=== PATIENT | male | born 1945 | race Caucasian/White ===

== ENCOUNTER → 2024-07-08 10:58 | Outpatient (REF) | payer MEDICARE, OTHER, SELFPAY | LOC: HWRAD 10:58 | PROVIDERS: ATTENDING PHYSICIAN Internal Medicine Rheumatology; FAMILY PHYSICIAN Nurse Practitioner Family | DX: M25.552 Pain in left hip (principal) | CPT/HCPCS: 73502 ==

== ENCOUNTER → 2024-10-09 13:43 | Outpatient (REF) | payer MEDICARE, OTHER, SELFPAY | LOC: HWRAD 13:43 | PROVIDERS: ATTENDING PHYSICIAN Nurse Practitioner Family | DX: I10 Essential (primary) hypertension (principal); E78.5 Hyperlipidemia, unspecified; M35.3 Polymyalgia rheumatica; I80.02 Phlebitis and thrombophlebitis of superficial vessels of left lower extremity; I26.99 Other pulmonary embolism without acute cor pulmonale; Z87.19 Personal history of other diseases of the digestive system; Z79.52 Long term (current) use of systemic steroids | CPT/HCPCS: 77080 ==

== ENCOUNTER → 2024-12-17 11:30 | Outpatient (REF) | payer MEDICARE, OTHER, SELFPAY ==
[2024-12-17 13:46] LABS: % Basophils 0.5 % (0-2); % Eosinophils 3.6 % (0-6); % Immature Granulocytes 0.5 % (0-0.5); % Lymphocytes 13.2 % (20.5-51.1); % Monocytes 15.6 % (1.7-9.3); % Neutrophils 66.6 % (42.2-75.2); Absolute Eosinophils 0.2 10^3/uL (0-0.7); Absolute Lymphocytes 0.9 10^3/uL (1.2-3.4); Absolute Neutrophils 4.4 10^3/uL (1.4-6.5); Hematocrit 42.1 % (39.0-52.0); Mean Corp Hgb Conc. 33.3 g/dL (33.0-37.0); Mean Corpuscular Volume 96.1 fL (80.0-94.0); Mean Platelet Volume 9.4 fL (7.4-10.4); Nucleated Red Blood Cells % 0 % (-); Platelet Count 184 10^3/uL (130-400); Red Blood Cell Count 4.38 10^6/uL (4.70-6.10); Red Cell Dist. Width 12.9 % (11.5-14.5); White Blood Cell Count 6.6 10^3/uL (4.8-10.8)
[2024-12-17 14:21] LABS: Blood Urea Nitrogen 13 mg/dl (9-20); Calcium 9.9 mg/dl (8.4-10.2); Carbon Dioxide 30 mmol/L (22-30); Chloride 92 mmol/L (98-107); Glucose 51 mg/dl (70-99); Potassium 4.9 mmol/L (3.5-5.1); Sodium 132 mmol/L (135-145); eGFR > 60.00
[2024-12-17 14:34] LABS: Erythrocyte Sed Rate 2 mm/hour (0-20)
== END ==
LOC: RAD 11:30
PROVIDERS: ATTENDING PHYSICIAN Nurse Practitioner Family
DX: R51.9 Headache, unspecified (principal); R06.09 Other forms of dyspnea
CPT/HCPCS: 36415; 70450; 80048; 85025; 85652; 86140

== ENCOUNTER → 2025-01-26 12:45 | Outpatient (REF) | payer MEDICARE, OTHER, SELFPAY | LOC: HWRAD 12:45 | PROVIDERS: ATTENDING PHYSICIAN Nurse Practitioner Family | DX: I83.892 Varicose veins of left lower extremity with other complications (principal) | CPT/HCPCS: 93970 ==

== ENCOUNTER → 2025-02-19 14:55 | Outpatient (REF) | payer MEDICARE, OTHER, SELFPAY | LOC: HWRAD 14:55 | PROVIDERS: ATTENDING PHYSICIAN Nurse Practitioner Family | DX: R05.9 Cough, unspecified (principal) | CPT/HCPCS: 71046 ==

== ENCOUNTER → 2025-03-18 08:10 | Outpatient (REF) | payer MEDICARE, OTHER, SELFPAY | LOC: HWEVLT 08:10 | PROVIDERS: ATTENDING PHYSICIAN Radiology Diagnostic Radiology | DX: I83.893 Varicose veins of bilateral lower extremities with other complications (principal); I83.892 Varicose veins of left lower extremity with other complications | CPT/HCPCS: 36471 ==

== ENCOUNTER → 2025-04-15 16:13 | Outpatient (REF) | payer MEDICARE, SELFPAY | LOC: RAD 16:13 | PROVIDERS: ATTENDING PHYSICIAN Nurse Practitioner Family | DX: R91.1 Solitary pulmonary nodule (principal) | CPT/HCPCS: 71260; Q9967 ==

== ENCOUNTER → 2025-04-21 10:14 | Outpatient (REF) | payer MEDICARE, SELFPAY | LOC: HWEVLT 10:14 | PROVIDERS: ATTENDING PHYSICIAN Radiology Diagnostic Radiology | DX: I83.891 Varicose veins of right lower extremity with other complications (principal); I83.892 Varicose veins of left lower extremity with other complications | CPT/HCPCS: 36471 ==

== ENCOUNTER 2025-05-22 11:22 | Emergency (ER) | payer MEDICARE, OTHER, SELFPAY ==
[2025-05-22 11:25] VITALS: BP 100/70
--- NOTE | 2025-05-22 13:14 | ED.GENMED ---
History of Present Illness
General
Chief Complaint: Musculo-Skeletal Complaint
Source: patient
Exam Limitations: none
Time Seen by Provider: 05/22/25 12:27
History of Present Illness
History of Present Illness:
Overnight patient developed pain and increased venous inflammatory changes to the left lower leg at the ankle and calf. History of venous issues. Followed by interventional radiology. On Xarelto. Last injection was 1 month ago. No pain in the
thigh. No chest pain shortness of breath or other complaints. No fever or chills.
Past History
Past History
ED Past Medical History: Arrthythmia (Atrial fib), Asthma, CAD, Cancer (Skin CA), GERD, Hypercholesterolemia, Hypothyroidism and Other (PNA, PE , Barretts esophagus)
ED Past Surgical History: Cardiac (Pacemaker), Orthopedic (left total hip replacement. Left foot surgery with Flexi-glass replaced bones, ) and Other (Left hernia repair, Lyle vein stripping, Left ear surgery with skin grafts, Left Shoulder MOhs)
Social History
Tobacco: Non-smoker
Alcohol: None
Drug: None
Personal:
Living: with family
Employment: Retired
Family History
Family History: Other (Noncontributory)
Review of Systems
Review of Systems
All Other Systems: Not applicable
Constitutional: Denies fever or chills
Respiratory: Reports no symptoms
Cardiac: Reports no symptoms
Phy Exam
Physical Exam
Physical Exam:
GENERAL: Alert and oriented in no apparent distress
LUNGS: No respiratory distress
NEUROLOGICAL: Alert and oriented , grossly non-focal
SKIN: Warm and dry, superficial varicosities towards the left ankle extending into the foot with a plexus of superficial veins towards the medial arch. Tenderness in this area. Chronic hyperpigmentation changes.
MUSCULOSKELETAL: No edema,no deformity.Good color. Good distal pulses and color. Cord to the left medial mid thigh. This is old.
PSYCH: Normal and appropriate interaction.
Course
Orders/Labs/Results
Orders:
Orders
05/22/25 11:32
US Periph Venous LOWER Ext LT Urgent
Comment:
Reason For Exam: pain to L foot
Vital Signs
Initial and Last Documented VS:
Initial Vital Signs
Temp Pulse Resp BP Pulse Ox
98.0 F 84 18 100/70 96
05/22/25 11:25 05/22/25 11:05/22/25 11:05/22/25 11:05/22/25 11:25
Last Documented Vital Signs
Temp Pulse Resp BP Pulse Ox
98.0 F 84 18 100/70 96
05/22/25 11:25 05/22/25 11:25 05/22/25 11:05/22/25 11:25 05/22/25 13:18
MDM/Problems Addressed
Differential Diagnosis Includes:
Localized superficial thrombophlebitis to the left lower leg. No obvious infection but with anti-inflammatory component of doxycycline will start doxycycline. He will temporarily bump up his prednisone a tiny bit. Warm compresses and follow-up.
Interventional radiology notified
*Radiology
Radiology exam reviewed: radiology read reviewed (Superficial thrombophlebitis)
*Pulse Oximetry
SaO2: 96
Oxygen Mode of Delivery: Room air
Patient hypoxic: no
*Critical Care Note
Total Time (30-74mins, 75-104mins- exclusive of procedures): Not Applicable
Data Reviewed
Review of Other/Old Records Reveals: Labs, Records and Testing
ED Attending Note
-
Portions of this chart may have been created with voice recognition software.� Occasional wrong word or��sound alike� substitutions may have occurred due to the inherent limitations of voice recognition software.
Discharge Plan
Departure
Patient Disposition: Home (Routine Discharge)
Date of Disposition: 05/22/25
Time of Disposition: 13:16
Patient with high blood pressure during this ER visit?: No
Discharge Problem:
Superficial thrombophlebitis left lower , History of venous issues left leg
Instructions: Superficial vein phlebitis and thrombosis
Prescriptions:
New
doxycycline hyclate 100 mg capsule
100 mg PO BID 7 Days Qty: 14 0RF
No Action
omeprazole 20 MG capsule,delayed release(DR/EC)
20 mg PO BID
rosuvastatin 20 MG tablet
20 mg PO QPM
prednisone 1 MG tablet
1 mg PO DAILY
Xarelto 20 MG tablet
20 mg PO QPM
calcium carbonate [Calcium 600] 600 mg calcium (1,500 mg) Tablet
600 mg PO BID
ferrous sulfate [Iron (ferrous sulfate)] 325 mg (65 mg iron) Tablet
325 mg PO DAILY
cholecalciferol (vitamin D3) [Vitamin D3] 25 mcg (1,000 unit) Tablet
25 mcg PO DAILY
PreserVision AREDS 2,148 mcg-113 mg-45 mg-17.4mg Tablet
1 tab PO DAILY
metoprolol succinate 25 MG tablet extended release 24 hr
25 mg PO QPM
levothyroxine 150 mcg Tablet
150 mcg PO DAILY
therapeutic multivitamin Tablet
1 tab PO DAILY
albuterol sulfate [Ventolin HFA] 90 mcg/actuation Hfa Aerosol Inhaler
2 puff INHALATION R Q6HPRN PRN (Reason: shortness of breath)
Referrals:
Waylon Carlisle CRNP [Family Provider, Family Practice] - Follow up in 2-3 days
Activity Restrictions/Additional Instructions:
Doxycycline as directed
Temporarily go up on your prednisone for 3 to 4 days with a taper back to your baseline dose
Warm compresses
Repeat ultrasound in 1 week if symptoms or not improving
The instructions may talk about taking Advil Motrin or Aleve but obviously do not take these medications with your anticoagulant medication
Interventions
Interventions:
*Risk Screen - Suicide Last Done: 05/22/25 11:25
*General Assessment Last Done: 05/22/25 11:25
*Neglect/Abuse Screening Last Done: 05/22/25 11:25
*ED- Fall Risk Assessment Last Done: 05/22/25 11:54
*ED COVID-19 Vaccine History Last Done: 05/22/25 11:25
*Nursing Disposition Last Done: 05/22/25 13:33
ED-Musculoskeletal Assessment Last Done: 05/22/25 11:54
Discharge Date and Time
Discharge Date/Time: 05/22/25 13:34
Print Language: BRAZILIAN
== END 2025-05-22 13:34 | disposition home or self-care (01) ==
LOC: EMR 11:22
PROVIDERS: EMERGENCY PHYSICIAN Emergency Medicine; FAMILY PHYSICIAN Nurse Practitioner Family
DX: I80.02 Phlebitis and thrombophlebitis of superficial vessels of left lower extremity (principal); Z86.718 Personal history of other venous thrombosis and embolism; I48.91 Unspecified atrial fibrillation; I25.10 Atherosclerotic heart disease of native coronary artery without angina pectoris; E78.00 Pure hypercholesterolemia, unspecified; J45.909 Unspecified asthma, uncomplicated; E03.9 Hypothyroidism, unspecified; K21.9 Gastro-esophageal reflux disease without esophagitis; K22.70 Barrett's esophagus without dysplasia; Z79.01 Long term (current) use of anticoagulants; Z86.711 Personal history of pulmonary embolism; Z95.0 Presence of cardiac pacemaker; Z96.642 Presence of left artificial hip joint; Z85.828 Personal history of other malignant neoplasm of skin
CPT/HCPCS: 99284; 93971

== ENCOUNTER → 2025-08-27 08:17 | Outpatient (REF) | payer MEDICARE, OTHER, SELFPAY | LOC: HWEVLT 08:17 | PROVIDERS: ATTENDING PHYSICIAN Radiology Diagnostic Radiology | DX: I83.892 Varicose veins of left lower extremity with other complications (principal) | CPT/HCPCS: 93971 ==

== ENCOUNTER → 2025-09-15 13:49 | Outpatient (REF) | payer MEDICARE, OTHER, SELFPAY | LOC: DHVS 13:49 | PROVIDERS: ATTENDING PHYSICIAN Student in an Organized Health Care Education/Training Program; FAMILY PHYSICIAN Nurse Practitioner Family | DX: I73.9 Peripheral vascular disease, unspecified (principal) | CPT/HCPCS: 93923 ==